=== PATIENT | male | born 1985 | race African-American/Black ===

== ENCOUNTER 2020-08-07 15:15 | Emergency (ER) | payer MEDICAID, OTHER ==
[~2020-08-07] VITALS: Ht 167.6 cm; Wt 75.0 kg
[2020-08-07 15:16] VITALS: BP 151/87
[2020-08-08] MEDS ORDERED: EMTR1TAB15 PO (12:51)
== END 2020-08-07 17:38 | disposition home or self-care (01) ==
LOC: EMS 15:15
DX: Z11.3 Encounter for screening for infections with a predominantly sexual mode of transmission (principal)
CPT/HCPCS: 99283; Z7502

== ENCOUNTER 2020-08-08 12:06 | Emergency (ER) | payer OTHER ==
[~2020-08-08] VITALS: Ht 170.2 cm; Wt 70.0 kg
[2020-08-08 12:48] VITALS: BP 137/102
[2020-08-08] MEDS ORDERED: EMTR1TAB15 PO (12:51)
== END 2020-08-08 14:13 | disposition home or self-care (01) ==
LOC: EMS 12:06
DX: Z76.0 Encounter for issue of repeat prescription (principal); F12.90 Cannabis use, unspecified, uncomplicated
CPT/HCPCS: 99281; Z7502